=== PATIENT | female | born 1980 | race Caucasian/White ===

== ENCOUNTER 2016-10-02 12:17 | Emergency (ER) | payer OTHER ==
[~2016-10-02] VITALS: Ht 147.3 cm; Wt 60.0 kg
[~2016-10-02 12:17] MED LIST: Z.0.NO CURRENT MEDS
[2016-10-02 12:30] VITALS: BP 136/86; PULSE 86; RESP 16; TEMP 98.2; O2SAT 98
--- NOTE | 2016-10-02 12:40 | PD ---
HPI . Abdominal pain in Chief Complaint: Related Problem Time Seen by Provider: 12:40 Travel History International Travel<30 days: No Contact w/Intl Traveler<30days: No Traveled to known affect area: No History of Present Illness HPI 36-year-old female with a miscarriage at 3 mts into one , here with c/o lower abdominal pain and suprapubic pressure for a few days. Patient says she initially experienced the pain 2 days ago. It stopped and then returned today. She decided to come to the ED for further evaluation. She is approximately 7 weeks per her reports. Her last menstrual period was approximately 08/10/16. She rates the pain as 8/10 and it comes and goes. She describes it as a tightening sensation without any radiation. It is only present while working. 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 She has been trying to drink water, despite not liking it. She denies any vaginal bleeding or dysuria. She has no urinary changes. She denies any fever or chills. She has not yet seen her general ledger accountant and has an appt scheduled for October 27. [facility] Past Medical History ?: LMP: 08/14/16 : 1 Para: 1 Social History Alcohol Use: No Tobacco Use: No Substance Use: No Allergies-Medications (Allergen,Severity, Reaction): Coded Allergies: No Known Allergies (Unverified , 10/02/16) Reported Meds & Prescriptions Reported Meds & Active Scripts Active Macrobid (Nitrofurantoin Monoh/Nitrofur Macro) 100 Mg Cap 100 Mg PO BID 7 Days Reported Folic Acid 5 Mg Cap 1 Mg PO DAILY Review of Systems General / Constitutional: No: Fever Eyes: No: Visual changes HENT: No: Headaches Cardiovascular: No: Chest Pain or Discomfort Respiratory: No: Shortness of Breath Gastrointestinal: No: Abdominal Pain Genitourinary: No: Dysuria Musculoskeletal: Positive: Pain (lower abdominal pain/suprapubic pain) Skin: No Rash Neurologic: No: Weakness Psychiatric: No: Depression Endocrine: No: Polydipsia Hematologic/Lymphatic: No: Easy Bruising Physical Exam Narrative GENERAL: AAO x 3, no acute distress, Well-nourished, well-developed patient. SKIN: Warm and dry. No visible rashes or bruising. HEAD: Normocephalic and atraumatic. EYES: No scleral icterus. No injection or drainage. ENT: No nasal drainage noted. Airway patent. NECK: Supple, trachea midline. No JVD. CARDIOVASCULAR: Regular rate and rhythm without murmurs, gallops, or rubs. RESPIRATORY: Breath sounds equal bilaterally. No accessory muscle use. No rhonchi or rales. GASTROINTESTINAL: Abdomen soft, non-tender, nondistended. PELVIC: Brandy THOMAS present: no blood in vaginal canal, no cervical abn. normal discharge or present EXTREMITIES: No cyanosis or edema. BACK: Nontender without obvious deformity. No CVA tenderness. PSYCH: AAO x 3, normal affect. POC US shows: IUP with 122 HR measuring 6 weeks 3 days Data Data Last Documented VS Vital Signs Date Time Temp Pulse Resp B/P Pulse Ox O2 Delivery O2 Flow Rate FiO2 10/02/16 13:00 17 10/02/16 12:30 98.2 86 136/86 98 Orders Ed Urine Pregnancytest Poc (10/02/16 12:47) Urinalysis - C+S If Indicated (10/02/16 12:47) Beta Hcg (Quant/Titer) (10/02/16 12:47) Cbc No Diff, Includes Plts (10/02/16 12:47) Comprehensive Metabolic Panel (10/02/16 12:47) Ed Poc Ultrasound (10/02/16 ) Sodium Chlor 0.9% 1000 Ml Inj (Ns 1000 M (10/02/16 13:30) Labs Laboratory Tests Test 10/02/16 12:50 White Blood Count 6.6 TH/MM3 Red Blood Count 5.08 MIL/MM3 Hemoglobin 11.0 GM/DL Hematocrit 34.2 % Mean Corpuscular Volume 67.2 FL Mean Corpuscular Hemoglobin 21.6 PG Mean Corpuscular Hemoglobin 32.1 % Concent Red Cell Distribution Width 16.8 % Platelet Count 150 TH/MM3 Mean Platelet Volume 8.8 FL Urine Color LIGHT-YELLOW Urine Turbidity CLEAR Urine pH 6.5 Urine Specific [place] 1.011 Urine Protein NEG mg/dL Urine Glucose (UA) NEG mg/dL Urine Ketones NEG mg/dL Urine Occult Blood NEG Urine Nitrite NEG Urine Bilirubin NEG Urine Urobilinogen LESS THAN 2.0 MG/DL Urine Leukocyte Esterase MOD Urine RBC 1 /hpf Urine WBC 3 /hpf Urine Squamous Epithelial 2 /hpf Cells Urine Transitional Epithelial <1 /hpf Cells Urine Bacteria RARE /hpf Urine Mucus FEW /lpf Microscopic Urinalysis Comment CULT NOT INDICATED Sodium Level 138 MEQ/L Potassium Level 3.9 MEQ/L Chloride Level 107 MEQ/L Carbon Dioxide Level 26.6 MEQ/L Anion Gap 4 MEQ/L Blood Urea Nitrogen 7 MG/DL Creatinine 0.71 MG/DL Estimat Glomerular Filtration 93 ML/MIN Rate Random Glucose 83 MG/DL Calcium Level 9.0 MG/DL Total Bilirubin 0.2 MG/DL Aspartate Amino Transf 15 U/L (AST/SGOT) Alanine Aminotransferase 26 U/L (ALT/SGPT) Alkaline Phosphatase 76 U/L Total Protein 7.5 GM/DL Albumin 3.5 GM/DL Human Chorionic Gonadotropin, 16728 MIU/ML Quant MDM Medical Decision Making Medical Screen Exam Complete: Yes Emergency Medical Condition: Yes Medical Record Reviewed: Yes Differential Diagnosis miscarriage, ectopic , UTI Narrative Course 36-year-old female with a miscarriage at 3 mts into one , here with c/o lower abdominal pain and suprapubic pressure for a few days. Patient says she initially experienced the pain 2 days ago. It stopped and then returned today. She decided to come to the ED for further evaluation. She is approximately 7 weeks per her reports. Her last menstrual period was approximately 08/10/16. She rates the pain as 8/10 and it comes and goes. She describes it as a tightening sensation without any radiation. It is only present while working. 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 She has been trying to drink water, despite not liking it. She denies any vaginal bleeding or dysuria. She has no urinary changes. She denies any fever or chills. She has not yet seen her general ledger accountant and has an appt scheduled for October 27. Patient seen and examined. Case discussed with Dr. Ronquillo. Labs ordered. We will perform a bedside US. IUP measuring 6 weeks 3 days, with HR 122 Pelvic exam: no blood: normal vaginal discharge of Laboratory Tests Test 10/02/16 12:50 White Blood Count 6.6 TH/MM3 Red Blood Count 5.08 MIL/MM3 Hemoglobin 11.0 GM/DL Hematocrit 34.2 % Mean Corpuscular Volume 67.2 FL Mean Corpuscular Hemoglobin 21.6 PG Mean Corpuscular Hemoglobin 32.1 % Concent Red Cell Distribution Width 16.8 % Platelet Count 150 TH/MM3 Mean Platelet Volume 8.8 FL Urine Color LIGHT-YELLOW Urine Turbidity CLEAR Urine pH 6.5 Urine Specific [place] 1.011 Urine Protein NEG mg/dL Urine Glucose (UA) NEG mg/dL Urine Ketones NEG mg/dL Urine Occult Blood NEG Urine Nitrite NEG Urine Bilirubin NEG Urine Urobilinogen LESS THAN 2.0 MG/DL Urine Leukocyte Esterase MOD Urine RBC 1 /hpf Urine WBC 3 /hpf Urine Squamous Epithelial 2 /hpf Cells Urine Transitional Epithelial <1 /hpf Cells Urine Bacteria RARE /hpf Urine Mucus FEW /lpf Microscopic Urinalysis Comment CULT NOT INDICATED Sodium Level 138 MEQ/L Potassium Level 3.9 MEQ/L Chloride Level 107 MEQ/L Carbon Dioxide Level 26.6 MEQ/L Anion Gap 4 MEQ/L Blood Urea Nitrogen 7 MG/DL Creatinine 0.71 MG/DL Estimat Glomerular Filtration 93 ML/MIN Rate Random Glucose 83 MG/DL Calcium Level 9.0 MG/DL Total Bilirubin 0.2 MG/DL Aspartate Amino Transf 15 U/L (AST/SGOT) Alanine Aminotransferase 26 U/L (ALT/SGPT) Alkaline Phosphatase 76 U/L Total Protein 7.5 GM/DL Albumin 3.5 GM/DL Human Chorionic Gonadotropin, 64505 MIU/ML Quant We used a shochet to explain to the patient that the heart rate was slightly slow and abnormal. We explained the measurements of the pole. We've advised her that she will need to see her KNOCK UP ASSEMBLER this week. Patient was instructed to make an appointment as soon as possible. We advised her that she should not wait until October 27 as scheduled. We have provided IV fluids for hydration as her pain may be stemming from slight dehydration. We stressed the importance of good hydration in . She has some leuks present on UA and I've discussed with Dr. Ronquillo. We will treat with macrobid. Patient verbalized understanding of instructions, questions were answered, and thanked me for their care. I advised them if their condition worsens, please return to the nearest emergency room for further care. Diagnosis Primary Impression: Abdominal pain Qualified Code: R10.30 - Lower abdominal pain Additional Impression: UTI (urinary tract infection) Qualified Code: N39.0 - Urinary tract infection without hematuria, site unspecified Patient Instructions: General Instructions Departure Forms: Tests/Procedures, Work Release Enter return to work date: Oct 04, 2016 Additional Instructions: As we discussed, please see your KNOCK UP ASSEMBLER this week. Take vitamins. We have provided antibiotics to treat for possible urinary tract infection. Please have your doctor recheck your urine. Return to the emergency department if her symptoms return or worsen. Scripts Nitrofurantoin Monohydrate Macrocrystals (Macrobid)100 Mg [id number] Mg PO BID 7 Days Ref 0 Prov:Babita Ronquillo MD 10/02/16 Disposition: 01 DISCHARGE HOME Condition: Stable Fang Wilder Oct 02, 2016 12:40
[2016-10-02] MEDS ORDERED: FOLI5CAP PO (13:01)
[2016-10-02] MEDS ORDERED: SODIUM CHLOR 0.9% 1000 ML INJ 1,000 ML IV ONE (13:30)
[2016-10-02 13:35] LABS: HEMATOCRIT 34.2 % (35.0-46.0); MEAN CELL VOLUME 67.2 FL (80.0-100.0); MEAN CORPUSCULAR HEMOGLOBIN 21.6 PG (27.0-34.0); MEAN CORPUSCULAR HGB CONC 32.1 % (32.0-36.0); PLATELET COUNT 150 TH/MM3 (150-450); RED BLOOD COUNT 5.08 MIL/MM3 (4.00-5.30); RED CELL DISTRIBUTION WIDTH 16.8 % (11.6-17.2); WHITE BLOOD COUNT 6.6 TH/MM3 (4.0-11.0)
[2016-10-02 13:36] LABS: REVIEW FLAG FINAL
[2016-10-02 13:38] LABS: BACTERIA, URINE RARE /hpf; BLOOD, URINE NEG (NEG); COMMENT (UR) CULT NOT INDICATED; CULTURE IF INDICATED CULT NOT INDICATED; GLUCOSE,URINE NEG (NEG); KETONE, URINE NEG (NEG); MUCUS URINE FEW /lpf (OCC); NITRITE,URINE NEG (NEG); PH, URINE 6.5 (5.0-8.5); SQUAMOUS EPITHELIAL CELL URINE 2 /hpf (0-5); TRANSITIONAL EPI CELLS, URINE <1 /hpf; URINE COLOR LIGHT-YELLOW (YELLW/STRAW)
[2016-10-02 13:53] LABS: ANION GAP 4 MEQ/L (5-15); AST (GOT) 15 U/L (15-37); BICARBONATE 26.6 MEQ/L (21.0-32.0); BLOOD UREA NITROGEN 7 MG/DL (7-18); CHLORIDE 107 MEQ/L (98-107); GLOMERULAR FILTRATION RATE 93 ML/MIN (>89); POTASSIUM 3.9 MEQ/L (3.5-5.1); SODIUM (NA) 138 MEQ/L (136-145)
[2016-10-02 14:10] LABS: ALKALINE PHOSPHATASE 76 U/L (45-117); ALT (GPT) 26 U/L (10-53); BETA HCG QUANT 15583 MIU/ML (0-5); TOTAL BILIRUBIN ADULT 0.2 MG/DL (0.2-1.0)
[2016-10-02] MEDS ORDERED: MACR100C2 PO (15:13)
[2016-10-02 15:17] VITALS: BP 120/81; TEMP 97.8
--- NOTE | 2016-10-02 15:49 | PD ---
Physical Exam Narrative I, Dr. Ronquillo, have reviewed the advance practice practitioner's documentation and am in agreement, met with the patient face to face, made the diagnosis, and the medical decision making was done by me. *My assessment and Findings: Patient is a 36-year-old female, approximately 7 weeks who comes in complaining of lower abdominal pain. She denies any dysuria, vaginal discharge or bleeding. She says working makes the pain worse. She denies any fever or chills. She did have a miscarriage in the past at 3 months. Exam shows some mild suprapubic tenderness. Data Data Last Documented VS Vital Signs Date Time Temp Pulse Resp B/P Pulse Ox O2 Delivery O2 Flow Rate FiO2 10/02/16 15: 97.8 77 16 120/81 100 Orders Ed Urine Pregnancytest Poc (10/02/16 12:47) Urinalysis - C+S If Indicated (10/02/16 12:47) Beta Hcg (Quant/Titer) (10/02/16 12:47) Cbc No Diff, Includes Plts (10/02/16 12:47) Comprehensive Metabolic Panel (10/02/16 12:47) Ed Poc Ultrasound (10/02/16 ) Sodium Chlor 0.9% 1000 Ml Inj (Ns 1000 M (10/02/16 13:30) Labs Laboratory Tests Test 10/02/16 12:50 White Blood Count 6.6 TH/MM3 Red Blood Count 5.08 MIL/MM3 Hemoglobin 11.0 GM/DL Hematocrit 34.2 % Mean Corpuscular Volume 67.2 FL Mean Corpuscular Hemoglobin 21.6 PG Mean Corpuscular Hemoglobin 32.1 % Concent Red Cell Distribution Width 16.8 % Platelet Count 150 TH/MM3 Mean Platelet Volume 8.8 FL Urine Color LIGHT-YELLOW Urine Turbidity CLEAR Urine pH 6.5 Urine Specific [place] 1.011 Urine Protein NEG mg/dL Urine Glucose (UA) NEG mg/dL Urine Ketones NEG mg/dL Urine Occult Blood NEG Urine Nitrite NEG Urine Bilirubin NEG Urine Urobilinogen LESS THAN 2.0 MG/DL Urine Leukocyte Esterase MOD Urine RBC 1 /hpf Urine WBC 3 /hpf Urine Squamous Epithelial 2 /hpf Cells Urine Transitional Epithelial <1 /hpf Cells Urine Bacteria RARE /hpf Urine Mucus FEW /lpf Microscopic Urinalysis Comment CULT NOT INDICATED Sodium Level 138 MEQ/L Potassium Level 3.9 MEQ/L Chloride Level 107 MEQ/L Carbon Dioxide Level 26.6 MEQ/L Anion Gap 4 MEQ/L Blood Urea Nitrogen 7 MG/DL Creatinine 0.71 MG/DL Estimat Glomerular Filtration 93 ML/MIN Rate Random Glucose 83 MG/DL Calcium Level 9.0 MG/DL Total Bilirubin 0.2 MG/DL Aspartate Amino Transf 15 U/L (AST/SGOT) Alanine Aminotransferase 26 U/L (ALT/SGPT) Alkaline Phosphatase 76 U/L Total Protein 7.5 GM/DL Albumin 3.5 GM/DL Human Chorionic Gonadotropin, 57188 MIU/ML Quant MDM Supervised Visit with DAVIS: Yes Narrative Course Urine is positive for bacteria and a few white blood cells. We'll treat with Macrobid. Bedside ultrasound performed shows an IUP. Heart rate is a little slow at 122. Patient informed of this. Advised she needs to follow-up with OB. Given IV fluids with some improvement of her pain. Advised to increase her fluid intake. Advised to return to the ED as needed for any worsening symptoms. Procedures Procedure Narrative Emergency Department Pelvic ultrasound was performed with patient consent. The curvilinear probe was used in the transverse and sagittal views within the suprapubic region revealing single intrauterine . heart rate was 122. [place]-rump length puts her at 6 weeks and 3 days. Diagnosis Primary Impression: Abdominal pain Qualified Code: R10.30 - Lower abdominal pain Additional Impression: UTI (urinary tract infection) Qualified Code: N39.0 - Urinary tract infection without hematuria, site unspecified Patient Instructions: General Instructions, Abdominal Pain (ED), Urinary Tract Infection in (ED) Departure Forms: Work Release, Enter return to work date: Tests/Procedures Additional Instruction: As we discussed, please see your HIGH SCHOOL LIBRARIAN this week. Take vitamins. We have provided antibiotics to treat for possible urinary tract infection. Please have your doctor recheck your urine. Return to the emergency department if her symptoms return or worsen. Scripts Nitrofurantoin Monohydrate Macrocrystals (Macrobid)100 Mg [id number] Mg PO BID 7 Days Ref 0 Prov:Babita Ronquillo MD 10/02/16 Disposition: 01 DISCHARGE HOME Condition: Stable Babita Ronquillo MD Oct 02, 2016 15:49
[2016-10-21] MEDS ORDERED: PREN1CAP7 PO (13:42)
== END 2016-10-02 15:17 | disposition home or self-care (01) ==
LOC: NEPD 12:17
DX: O23.41 Unspecified infection of urinary tract in pregnancy, first trimester (principal); Z3A.01 Less than 8 weeks gestation of pregnancy; R10.2 Pelvic and perineal pain
CPT/HCPCS: 80053; 81001; 84702; 84703; 85027; 96360; 99284; J7030

== ENCOUNTER 2017-05-14 22:22 | Inpatient (IN) | payer MEDICAID ==
[~2017-05-14] VITALS: Ht 152.4 cm; Wt 73.0 kg
[~2017-05-14 22:22] MED LIST changes: +AMOX500T PO; +DIPHTH/TETANUS/ACEL PERTUSSIS (BOOSTER) 0.5 ML VIAL/PFS IM ONE; +FOLI5CAP PO; +MEASLES, MUMPS, RUBELLA VACCINE 0.5 ML VIAL SQ ONE; +PREN1CAP7 PO; -Z.0.NO CURRENT MEDS
[2017-05-14] MEDS ORDERED: LACTATED RINGER'S 1000 ML INJ 1,000 ML IV PRN (22:37)
[2017-05-14] MEDS: LACTATED RINGER'S 1000 ML INJ 1,000 ML IV SCH (22:37)
[2017-05-14] MEDS ORDERED: CITRIC ACID-SODIUM CITRATE LIQ 30 ML UDC PO SCH (22:45)
[2017-05-14] MEDS ORDERED: LIDOCAINE HCL 1% 50 ML VIAL I-DERMAL PRN (22:45)
[2017-05-14] MEDS ORDERED: SODIUM CHLORID 0.9% 500 ML INJ 500 ML IV PRN (22:45)
[2017-05-14] MEDS ORDERED: MINERAL OIL 10 ML VIAL TOPICAL PRN (22:45)
[2017-05-14] MEDS ORDERED: OXYTOCIN 30 UNITS-500ML PREMIX 500 ML IV ONE (22:45)
[2017-05-14] MEDS ORDERED: LIDOCAINE HCL 1% 50 ML VIAL INFIL PRN (22:45)
[2017-05-14] MEDS ORDERED: SODIUM CHLOR 0.9% 1000 ML INJ 1,000 ML IV PRN (22:57)
[2017-05-14 23:06] LABS: BACTERIA, URINE OCC /hpf; BLOOD, URINE LARGE (NEG); GLUCOSE,URINE NEG (NEG); KETONE, URINE NEG (NEG); MUCUS URINE FEW /lpf (OCC); NITRITE,URINE NEG (NEG); SQUAMOUS EPITHELIAL CELL URINE 8 /hpf (0-5); URINE COLOR YELLOW (YELLW/STRAW)
[2017-05-14 23:07] LABS: AUTOMATED NEUTROPHIL # 8.4 TH/MM3 (1.8-7.7); BASOPHIL % 0.1 % (0.0-2.0); COMMENT (UR) CULTURE INDICATED; CULTURE IF INDICATED CULTURE INDICATED; EOSINOPHIL # 0.1 TH/MM3 (0-0.4); EOSINOPHIL % 0.6 % (0.0-4.0); HEMATOCRIT 33.2 % (35.0-46.0); HEMO FLAGS DIFF FINAL; LYMPH % 11.8 % (9.0-44.0); LYMPHOCYTE # 1.2 TH/MM3 (1.0-4.8); MEAN CELL VOLUME 65.8 FL (80.0-100.0); MEAN CORPUSCULAR HEMOGLOBIN 20.7 PG (27.0-34.0); MEAN CORPUSCULAR HGB CONC 31.4 % (32.0-36.0); MONO % 5.9 % (0.0-8.0); NEUT % 81.6 % (16.0-70.0); PLATELET COUNT 157 TH/MM3 (150-450); RED BLOOD COUNT 5.05 MIL/MM3 (4.00-5.30); RED CELL DISTRIBUTION WIDTH 19.1 % (11.6-17.2); WHITE BLOOD COUNT 10.3 TH/MM3 (4.0-11.0)
--- NOTE | 2017-05-14 23:24 | HHI.HP ---
HPI Chief Complaint contraction pain Date Seen: May 14, 2017 Time Seen: 22:45 Travel History International Travel<30 Days: No Contact w/Intl Traveler<30Days: No Known Affected Area: No History of Present Illness HPI 36-year-old A1 at 39 weeks [facility] presents in precipitous labor, she is 10 cm dilated on admission. With bulging membranes baby in a cephalic presentation. heart rate is reactive and contractions noted History Obstetric History Obstetric History One vaginal delivery 1 early miscarriage Social History Alcohol Use: No Tobacco Use: No Substance Abuse: No Allergies-Medications (Allergen,Severity, Reaction): Coded Allergies: No Known Allergies (Unverified Allergy, Unknown, 05/14/17) Home Meds Active Scripts Amoxicillin (Amoxicillin) 500 Mg Tab, 500 MG PO TID for Infection, #21 TAB 0 Refills Prov:Max Beard MD 05/09/17 W/O Vit A W/ Fe Fumar (Citranatal [place]) 27-1-260 Mg Cap, 1 CAP PO DAILY for Nutritional Supplement, #30 CAP 11 Refills Prov:Yesenia Okeefe CNM FIRER HELPER 03/31/17 W/O Vit A W/ Fe Fumar (Citranatal [place]) 27-1-260 Mg Cap Prov:Max Beard MD 10/18/16 Reported Medications Folic Acid (Folic Acid) 5 Mg Cap, 1 MG PO DAILY for Nutritional Supplement, CAP 0 Refills 10/02/16 Review of Systems General / Constitutional: No: Fever, Weight Gain, Chills, Other Eyes: No: Diploplia, Blurred Vision, Visual changes, Pain, Photophobia HENT: No: Headaches, Vertigo, Lightheadedness Cardiovascular: No: Irregular Rhythm, Chest Pain or Discomfort, Palpitations, Tachycardia, Syncope, Varicosities, Edema, Cyanosis Respiratory: No: Cough, Short of Breath, Other Gastrointestinal: No: Nausea, Vomiting, Diarrhea Genitourinary: No: Decreased Urinary Output, Oliguria Musculoskeletal: No: Limited ROM, Weakness, Cramping, Edema, Pain Skin: No Rash, No Itching, No Dryness, No Lumps, No Change in Pigmentation, No Change in Nails, No Alopecia, No Lesions Neurologic: No: Weakness, Dizziness, Syncope, Focal Abnormalities, Coordination Problem, Headache, Slurred Speech, Seizures Psychiatric: No: Depression, Suicidal Ideations, Homicidal Ideation Endocrine: No: Heat Intolerance, Cold Intolerance, Polydipsia, Polyuria, Other Physical Exam Narrative GENERAL: Well-nourished, well-developed patient. SKIN: Warm and dry. HEAD: Normocephalic and atraumatic. EYES: No scleral icterus. No injection or drainage. ENT: No nasal drainage noted. Mucous membranes pink. Airway patent. NECK: Supple, trachea midline. No JVD. CARDIOVASCULAR: Regular rate and rhythm without murmurs, gallops, or rubs. RESPIRATORY: Breath sounds equal bilaterally. No accessory muscle use. BREASTS: Bilateral exam showed no masses , no retractions, no nipple discharge. ABDOMEN/GI: Abdomen soft, non-tender, bowel sounds present, no rebound, no guarding Gravid to [39-] weeks size Fundal Height: [-39] GENITOURINARY: External Genitalia: intact and normal in appearance BUS glands: [-] Cervix: [-] Dilatation: [-10] Effacement: [100-] Station: [-1] Presentation: [vtx-] Membranes: [intact BBOW] Uterine Contractions: [yes-] FHT's: Category: [-1] Baseline: [-133] Reactive: [-yes] Variability: [-mod] Decels: [0-] EXTREMITIES: No cyanosis or edema. BACK: Nontender without obvious deformity. No CVA tenderness. NEUROLOGICAL: Awake and alert. Motor and sensory grossly within normal limits. Five out of 5 muscle strength in all muscle groups. Normal speech. Caprini VTE Risk Assessment Caprini VTE Risk Assessment: No/Low Risk (score <= 1) Caprini Risk Assessment Model Point Value = 1 Point Value = 2 Point Value = 3 Point Value = 5 Age 41-60 Minor surgery BMI > 25 kg/m2 Swollen legs Varicose veins or History of unexplained or recurrent spontaneous Oral contraceptives or hormone replacement Sepsis (< 1 month) Serious lung disease, including pneumonia (< 1 month) Abnormal pulmonary function Acute myocardial infarction Congestive heart failure (< 1 month) History of inflammatory bowel disease Medical patient at bed rest Age 61-74 Arthroscopic surgery Major open surgery (> 45 min) Laparoscopic surgery (> 45 min) Malignancy Confined to bed (> 72 hours) Immobilizing plaster cast Central venous access Age >= 75 History of VTE Family history of VTE Factor V Leiden Prothrombin [id number] Lupus anticoagulant Anticardiolipin antibodies Elevated serum homocysteine Heparin-induced thrombocytopenia Other congenital or acquired thrombophilia Stroke (< 1 month) Elective arthroplasty Hip, pelvis, or leg fracture Acute spinal cord injury (< 1 month) Prophylaxis Regimen Total Risk Factor Score Risk Level Prophylaxis Regimen 0-1 Low Early ambulation 2 Moderate Order ONE of the following: *Sequential Compression Device (SCD) *Heparin 5000 units SQ BID 3-4 Higher Order ONE of the following medications: *Heparin 5000 units SQ TID *Enoxaparin/Lovenox 40 mg SQ daily (WT < 150 kg, CrCl > 30 mL/min) *Enoxaparin/Lovenox 30 mg SQ daily (WT < 150 kg, CrCl > 10-29 mL/min) *Enoxaparin/Lovenox 30 mg SQ BID (WT < 150 kg, CrCl > 30 mL/min) AND/OR *Sequential Compression Device (SCD) 5 or more Highest Order ONE of the following medications: *Heparin 5000 units SQ TID (Preferred with Epidurals) *Enoxaparin/Lovenox 40 mg SQ daily (WT < 150 kg, CrCl > 30 mL/min) *Enoxaparin/Lovenox 30 mg SQ daily (WT < 150 kg, CrCl > 10-29 mL/min) *Enoxaparin/Lovenox 30 mg SQ BID (WT < 150 kg, CrCl > 30 mL/min) AND *Sequential Compression Device (SCD) Data Data Orders Orders Ob (2e) Additional Admit Info (05/14/17 22:34) Admit To Inpatient (05/14/17 ) Vital Signs (Adult) .Per protocol (05/14/17 22:37) Heart (05/14/17 22:37) Amnioinfusion (05/14/17 22:37) Urinary Catheter Management .ONCE (05/14/17 22:37) Lactated Ringer's 1000 Ml Inj (Lr 1000 M (05/14/17 22:37) Lactated Ringer's 1000 Ml Inj (Lr 1000 M (05/14/17 22:37) Sodium Chlorid 0.9% 500 Ml Inj (Ns 500 M (05/14/17 22:45) Sodium Chlor 0.9% 1000 Ml Inj (Ns 1000 M (05/14/17 22:57) Lidocaine 1% Inj (50 Ml) (Xylocaine 1% I (05/14/17 22:45) Citric Acid-Sodium Citrate Liq (Bicitra (05/14/17 22:45) Fentanyl Inj (Fentanyl Inj) (05/14/17 22:45) Fentanyl Inj (Fentanyl Inj) (05/14/17 22:45) Complete Blood Count With Diff (05/14/17 22:37) Hold Clot (05/14/17 22:37) Abo/Rh Blood Type (05/14/17 22:37) Urinalysis - C+S If Indicated (05/14/17 22:37) Drug Screen, Random Urine (05/14/17 22:37) Resp Oxygen Non Rebreathe Mask (05/14/17 ) ^ Epidural / Intrathecal Infus (05/14/17 22:37) Oxytocin 30 Units-500ml Premix (Pitocin (05/14/17 22:45) Lidocaine 1% Inj (50 Ml) (Xylocaine 1% I (05/14/17 22:45) Light Mineral Oil (Muri-Lube Oil) (05/14/17 22:45) Specimen To Be Collected PRN (05/14/17 22:37) Specimen To Be Collected PRN (05/14/17 22:37) Urine Culture (05/14/17 22:45) Labs Laboratory Tests Test 05/14/17 22:45 White Blood Count 10.3 Red Blood Count 5.05 Hemoglobin 10.4 Hematocrit 33.2 Mean Corpuscular Volume 65.8 Mean Corpuscular Hemoglobin 20.7 Mean Corpuscular Hemoglobin Concent 31.4 Red Cell Distribution Width 19.1 Platelet Count 157 Mean Platelet Volume 8.6 Neutrophils (%) (Auto) 81.6 Lymphocytes (%) (Auto) 11.8 Monocytes (%) (Auto) 5.9 Eosinophils (%) (Auto) 0.6 Basophils (%) (Auto) 0.1 Neutrophils # (Auto) 8.4 Lymphocytes # (Auto) 1.2 Monocytes # (Auto) 0.6 Eosinophils # (Auto) 0.1 Basophils # (Auto) 0.0 CBC Comment DIFF FINAL Differential Comment Urine Color YELLOW Urine Turbidity HAZY Urine pH 6.0 Urine Specific [place] 1.027 Urine Protein 30 Urine Glucose (UA) NEG Urine Ketones NEG Urine Occult Blood LARGE Urine Nitrite NEG Urine Bilirubin NEG Urine Urobilinogen 2.0 Urine Leukocyte Esterase LARGE Urine RBC 21 Urine WBC 44 Urine Squamous Epithelial Cells 8 Urine Bacteria OCC Urine Mucus FEW Microscopic Urinalysis Comment CULTURE INDICATED Urine Opiates Screen NEG Urine Barbiturates Screen NEG Urine Amphetamines Screen NEG Urine Benzodiazepines Screen NEG Urine Cocaine Screen NEG Urine Cannabinoids Screen NEG Date/Time Source Procedure Growth Status 05/14/17 22:45 Urine Clean Catch Urine Culture Pending Received Assessment/Plan Assessment and Plan 36-year-old A1 at 39 weeks in active precipitous labor, dilated 10 cm on admission. Heart rate tracing is reactive Impression-precipitous labor and now the second stage on admission Plan-admit and anticipate vaginal delivery very soon Kole Coleman II, MD May 14, 2017 23:24
--- NOTE | 2017-05-14 23:28 | PD.OB.DELI ---
Weeks gestation: 39 Gest age assessed date: May 14, 2017 Gest age assessed time: 23:24 Pt started active labor?: Yes Active labor start date: May 14, 2017 Medical induction of labor?: No Artificial rupture of membrane: No Anesthesia: None Episiotomy: None Vaginal Delivery: Normal, Spontaneous, Precipitous Presentation: Occiput anterior, Vertex Nuchal Cord: None Delayed cord clamping (45 sec): No Infant: Male Delivery date: May 14, 2017 Delivery time: 22:56 One Minute : 8 Five Minute : 9 Weight: Not yet recorded, skin to skin in session Placenta: Spontaneous delivery, Intact, 3 vessel cord Laceration: Perineal laceration, 1 deg Repair: Vicryl running Estimated blood loss: 100 cc Additional Information terminal meconium noted Radha Granados MD R1 May 14, 2017 23:28
[2017-05-14] MEDS ORDERED: ONDANSETRON ODT 4 MG TAB PO PRN (23:30)
[2017-05-14] MEDS ORDERED: oxyCODONE/ACETAMINOPHEN 5 MG/325 MG TAB PO PRN (23:30)
[2017-05-14] MEDS ORDERED: ACETAMINOPHEN 325 MG TAB PO PRN (23:30)
[2017-05-14] MEDS ORDERED: SODIUM CHLORIDE 0.9% FLUSH 10 ML FLUSH IV FLUSH PRN (23:30)
[2017-05-14] MEDS ORDERED: DOCUSATE SODIUM 50 MG/SENNA 8.6 MG TAB PO PRN (23:30)
[2017-05-14] MEDS ORDERED: WITCH HAZEL 50%/GLYCERIN 12.5% 40 PAD JAR TOPICAL PRN (23:30)
[2017-05-14] MEDS ORDERED: OXYTOCIN 30 UNITS-500ML PREMIX 500 ML IV SCH (23:30)
[2017-05-14] MEDS ORDERED: ALUMINUM/MAGNESIUM/SIMETH 30 ML CUP PO PRN (23:30)
[2017-05-14] MEDS ORDERED: BENZOCAINE 20% TOPICAL SPRAY 60 ML CAN TOPICAL PRN (23:30)
[2017-05-14] MEDS ORDERED: ZOLPIDEM TARTRATE 5 MG TAB PO PRN (23:30)
[2017-05-14] MEDS: oxyCODONE/ACETAMINOPHEN 5 MG/325 MG TAB PO PRN (23:50)
[2017-05-14] MEDS: IBUPROFEN 800 MG TAB PO PRN (23:50)
[2017-05-15] MEDS: oxyCODONE/ACETAMINOPHEN 5 MG/325 MG TAB PO PRN ×2 (06:18→14:04)
--- NOTE | 2017-05-15 08:04 | HHI.OB ---
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 AFVSS overnight. Decreased lochia. Denies dysuria. No breast tenderness. She is feeding the baby via breast. Appetite good. No nausea or vomiting. Ambulating well. Denies calf pain or shortness of breath. Otherwise, she is doing well this morning and has no other concerns. Objective Vitals/I&O Wnl over last 12 hr Objective Remarks GENERAL: Well-nourished, well-developed female in no apparent distress. CARDIOVASCULAR: Regular rate and rhythm without murmurs, gallops, or rubs. RESPIRATORY: Breath sounds equal bilaterally. No accessory muscle use. ABDOMEN/GI: Abdomen soft, non-tender. Fundus: Firm, non-tender at umbilicus. GENITOURINARY: Light to moderate bleeding. EXTREMITIES: No cyanosis or edema, non-tender, without signs of DVT. Medications and IVs Current Medications Medications (Trade) Dose Ordered Sig/Paulo Route Start Time Stop Time Status Last Admin Lactated Ringer's 1,000 ml @ 125 mls/hr Q8H IV 05/14/17 22:37 05/14/17 22:37 Lactated Ringer's 1,000 ml @ 3,000 mls/hr Q20M PRN IV 05/14/17 22:37 Sodium Chloride 1,000 ml @ 100 mls/hr Q10H PRN IV 05/14/17 22:57 (Xylocaine 1% Inj (50 ml)) 0.1 ml UNSCH X1 PRN I-DERMAL 05/14/17 22:45 05/17/17 22:44 (Bicitra Liq) 30 ml ROCK [employer]OR PO 05/14/17 22:45 05/18/17 22:44 (fentaNYL INJ) 50 mcg Q1H PRN IV PUSH 05/14/17 22:45 (fentaNYL INJ) 100 mcg Q1H PRN IV PUSH 05/14/17 22:45 (Xylocaine 1% Inj (50 ml)) 10 ml UNSCH X1 PRN INFIL 05/14/17 22:45 05/16/17 22:44 (Muri-Lube Oil) 10 ml UNSCH PRN TOPICAL 05/14/17 22:45 (NS Flush) 2 ml BID IV FLUSH 05/15/17 09:00 (NS Flush) 2 ml UNSCH PRN IV FLUSH 05/14/17 23:30 (Tylenol) 650 mg Q4H PRN PO 05/14/17 23:30 (Motrin) 800 mg Q8H PRN PO 05/14/17 23:30 05/14/17 23:50 (Percocet 5-325 Mg) 1 tab Q4H PRN PO 05/14/17 23:30 (Percocet 5-325 Mg) 2 tab Q4H PRN PO 05/14/17 23:30 05/15/17 06:18 (Americaine 20% Top Spr) 1 spray Q4H PRN TOPICAL 05/14/17 23:30 (Tucks Pads) 1 applic QID PRN TOPICAL 05/14/17 23:30 05/15/17 02:00 (Freda-Colace) 2 tab Q12H PRN PO 05/14/17 23:30 (Ambien) 5 mg HS PRN PO 05/14/17 23:30 (Mag-Al Plus Susp Liq) 15 ml Q8H PRN PO 05/14/17 23:30 (Zofran Odt) 4 mg Q6H PRN PO 05/14/17 23:30 Assessment/Plan Assessment and Plan 36-year-old A1 PPD #1 s/p precipitous of viable male infant. -Continue routine care. -Tylenol and Motrin PRN pain. -Encouraged OOB. Advised pelvic rest for 6 wks. Will need a f/u appt. in 1 wk for incision check. -Re: ctrl, she would like to take time and think about options. Options discussed including Depo, LARCs, OCPs, patch -Rh negative, Rhogam pending -Anticipate discharge tomorrow. CHUCK Coleman Discharge Planning Tomorrow to home Oma Díaz MD R2 May 15, 2017 08:04
[2017-05-15] MEDS: IBUPROFEN 800 MG TAB PO PRN (14:04)
[2017-05-16] MEDS: oxyCODONE/ACETAMINOPHEN 5 MG/325 MG TAB PO PRN ×3 (00:50→15:48)
[2017-05-16] MEDS: IBUPROFEN 800 MG TAB PO PRN ×2 (00:50→15:48)
--- NOTE | 2017-05-16 07:03 | HHI.OB ---
Subjective Post Day: 2 Remarks day #2. Pain well controlled. Decreased lochia. Denies dysuria. She is feeding the baby via breast. Appetite good. No nausea or vomiting. Negative flatus. Negative bowel movement. Has not ambulated much. Denies calf pain, shortness of breath, or cough. Otherwise, she is doing well this morning and has no other complaints. Objective Objective Remarks GENERAL: Well-nourished, well-developed female in no apparent distress. CARDIOVASCULAR: Regular rate and rhythm without murmurs, gallops, or rubs. RESPIRATORY: Breath sounds equal bilaterally. No accessory muscle use. ABDOMEN/GI: Abdomen soft, non-tender. Fundus: Firm, non-tender at umbilicus. GENITOURINARY: Light to moderate bleeding. EXTREMITIES: No cyanosis or edema, non-tender, without signs of DVT. Medications and IVs Current Medications Medications (Trade) Dose Ordered Sig/Paulo Route Start Time Stop Time Status Last Admin Lactated Ringer's 1,000 ml @ 125 mls/hr Q8H IV 05/14/17 22:37 05/14/17 22:37 Lactated Ringer's 1,000 ml @ 3,000 mls/hr Q20M PRN IV 05/14/17 22:37 Sodium Chloride 1,000 ml @ 100 mls/hr Q10H PRN IV 05/14/17 22:57 (Xylocaine 1% Inj (50 ml)) 0.1 ml UNSCH X1 PRN I-DERMAL 05/14/17 22:45 05/17/17 22:44 (Bicitra Liq) 30 ml MANAGER APPOINTMENT PO 05/14/17 22:45 05/18/17 22:44 (fentaNYL INJ) 50 mcg Q1H PRN IV PUSH 05/14/17 22:45 (fentaNYL INJ) 100 mcg Q1H PRN IV PUSH 05/14/17 22:45 (Xylocaine 1% Inj (50 ml)) 10 ml UNSCH X1 PRN INFIL 05/14/17 22:45 05/16/17 22:44 (Muri-Lube Oil) 10 ml UNSCH PRN TOPICAL 05/14/17 22:45 (NS Flush) 2 ml BID IV FLUSH 05/15/17 09:00 (NS Flush) 2 ml UNSCH PRN IV FLUSH 05/14/17 23:30 (Tylenol) 650 mg Q4H PRN PO 05/14/17 23:30 (Motrin) 800 mg Q8H PRN PO 05/14/17 23:30 05/16/17 00:50 (Percocet 5-325 Mg) 1 tab Q4H PRN PO 05/14/17 23:30 (Percocet 5-325 Mg) 2 tab Q4H PRN PO 05/14/17 23:30 05/16/17 04:35 (Americaine 20% Top Spr) 1 spray Q4H PRN TOPICAL 05/14/17 23:30 (Tucks Pads) 1 applic QID PRN TOPICAL 05/14/17 23:30 05/15/17 02:00 (Freda-Colace) 2 tab Q12H PRN PO 05/14/17 23:30 (Ambien) 5 mg HS PRN PO 05/14/17 23:30 (Mag-Al Plus Susp Liq) 15 ml Q8H PRN PO 05/14/17 23:30 (Zofran Odt) 4 mg Q6H PRN PO 05/14/17 23:30 Assessment/Plan Assessment and Plan 36-year-old A1 PPD #2 s/p precipitous of viable male . -Continue routine care. -Tylenol and Motrin PRN pain. -Encouraged OOB. Advised pelvic rest for 6 wks. Will need a f/u appt. in 6 weeks for -Re: ctrl, she has not decided on options -Rh negative, Rhogam administered -Anticipate discharge today DW Dr. Metcalf Discharge Planning Today to home Kyra Alicea MD R2 May 16, 2017 07:03
[2017-05-16] MEDS ORDERED: IBUP1TAB7 PO (07:06)
[2017-05-16] MEDS ORDERED: PERI PO (07:06)
--- NOTE | 2017-05-16 07:07 | HHI.DCPOC ---
Discharge Care Plan Diagnosis: (1) Vaginal delivery Report Symptoms to Your Doctor -Temperature above 100.5 degrees -Redness, of incision or excessive or foul smelling drainage -Unusual pain or calf pain -Increased vaginal bleeding -Painful or difficulty urinating -Feelings of extreme sadness or anxiety after 2 weeks Goals to Promote Your Health * To prevent worsening of your condition and complications * To maintain your health at the optimal level Directions to Meet Your Goals Take your medications as prescribed Follow your dietary instruction Follow activity as directed Ensure plenty of rest for recovery Drink fluids for hydration Keep your appointments as scheduled Take your immunizations and boosters as scheduled If your symptoms worsen call your PCP, if no PCP go to Urgent Care Center or Emergency Room Smoking is Dangerous to Your Health. Avoid second hand smoke Call the 24-hour crisis hotline for domestic abuse at Kyra Alicea MD R2 May 16, 2017 07:07
[2017-05-16] MEDS: SODIUM CHLORIDE 0.9% FLUSH 10 ML FLUSH IV FLUSH SCH ×2 (09:50→15:29)
[2017-05-16] MEDS: LACTATED RINGER'S 1000 ML INJ 1,000 ML IV SCH (15:28)
[2017-05-16] MEDS ORDERED: DIPHTH/TETANUS/ACEL PERTUSSIS (BOOSTER) 0.5 ML VIAL/PFS IM ONE (18:30)
== END 2017-05-16 18:34 | disposition home or self-care (01) | DRG 775 ==
LOC: HOBED 22:22 → H2EB 22:35 → H1EA 05-15 01:07
PROVIDERS: ADMIT Obstetrics & Gynecology Maternal & Fetal Medicine; ATTEND Obstetrics & Gynecology Maternal & Fetal Medicine
PROC: 10E0XZZ Delivery of Products of Conception, External Approach (ICD-10-PCS; principal; 2017-05-14)
PROC: 0HQ9XZZ Repair Perineum Skin, External Approach (ICD-10-PCS; 2017-05-14)
DX: O62.3 Precipitate labor (principal); O77.0 Labor and delivery complicated by meconium in amniotic fluid; Z37.0 Single live birth; Z3A.39 39 weeks gestation of pregnancy; O70.0 First degree perineal laceration during delivery
CPT/HCPCS: 80307; 81001; 85025; 85461; 86850; 86900; 86901; 87086; 90384; 90715; 99285; J2590; J2790; J7120